=== PATIENT | male | born 1985 | race Two or more races ===

== ENCOUNTER 2019-05-28 11:50 | Emergency (ER) | payer BC ==
[~2019-05-28] VITALS: Ht 185.4 cm; Wt 95.3 kg
[2019-05-28 12:05] VITALS: BP 148/73
--- NOTE | 2019-05-28 12:05 | NUR ---
ED Nurse Note: Patient walked in to ER due to sorethroat x3 days. As per pt, he took OTC medications last night and this morning but doesnt alleviate the pain. No SOB. Afebrile. VSS.
--- NOTE | 2019-05-28 12:51 | Emergency Room Report ---
History of Present Illness General Chief Complaint: Sore Throat Source: Patient Present Illness HPI 33-year-old male presents to the emergency department complaining of 8 out of 10 severity sore throat with intermittent nasal congestion, mucus production and cough. Pt. reports his cough is most noticeable at night where he describes choking sensation on mucus. He reports his symptoms have been going on for 2 days he reports intermittent environmental allergies but does not take any medication for this. Pt. reports his ST is exacerbated with swallowing and describes the sensation of "razor blades" in his throat. He denies fevers or chills he reports he has been taking Mucinex and he last took some Mucinex this morning but only took 1 of the pills. Patient denies a significant past medical history. He denies swollen tender lymph nodes. He denies contact with children. Patient History Past Medical History: none, see triage record Past Surgical History: none Reviewed Nursing Documentation: PMH: Agreed; PSxH: Agreed Nursing Documentation-PMH Past Medical History: No Stated History Review of Systems All Other Systems: negative except mentioned in HPI Physical Exam Vital Signs Date Time Temp Pulse Resp B/P (MAP) Pulse Ox O2 Delivery O2 Flow Rate FiO2 05/28/19 11:57 98.8 72 18 148/73 (98) 98 Room Air Sp02 EP Interpretation: reviewed, normal General Appearance: no apparent distress, alert, GCS 15, non-toxic Head: normocephalic, atraumatic Eyes: bilateral eye normal inspection, bilateral eye PERRL ENT: hearing grossly normal, normal voice, pharyngeal erythema, other - no tonsillar swelling or exudates Neck: full range of motion, no meningismus, other - NO cervical LAD, no Stridor , no phlegm on ascultation Respiratory: chest non-tender, lungs clear, normal breath sounds, speaking full sentences Cardiovascular #1: regular rate, rhythm Musculoskeletal: gait/station normal, normal range of motion, non-tender Neurologic: alert, oriented x3, responsive, motor strength/tone normal, sensory intact, speech normal, grossly normal Psychiatric: judgement/insight normal Skin: no rash, normal color Lymphatic: no adenopathy Medical Decision Making PA Attestation Dr. Schrader is my supervising Physician whom patient management has been discussed with. Diagnostic Impression: Primary Impression: Acute pharyngitis Qualified Codes: J02.9 - Acute pharyngitis, unspecified Additional Impression: Post-nasal drainage ER Course 33-year-old male presents to the emergency department complaining of 8 out of 10 severity sore throat with intermittent nasal congestion, mucus production and cough. Pt. reports his cough is most noticeable at night where he describes choking sensation on mucus. He reports his symptoms have been going on for 2 days he reports intermittent environmental allergies but does not take any medication for this. Pt. reports his ST is exacerbated with swallowing and describes the sensation of "razor blades" in his throat. He denies fevers or chills he reports he has been taking Mucinex and he last took some Mucinex this morning but only took 1 of the pills. Patient denies a significant past medical history. He denies swollen tender lymph nodes. He denies contact with children. Ddx considered but are not limited to: pharyngitis, strep, [employer]IAN, ludwigs angina, URI, PND, GERD just to name a few. Vital signs: are WNL, pt. is afebrile H&PE are most consistent with: pharyngitis not presumed to be strep based on CENTOR criteria. ORDERS: None required at this time as the diagnosis is clinical ED INTERVENTIONS: none required at this time. -I do not identify an emergent condition at this time. With current presentation , pt. is stable for close outpatient follow up and conservative treatment. D/ w pt. to return promptly to ED with worsening or new symptoms.- Pt. verbalizes' understanding and agreement with proposed treatment plan. DISCHARGE: At this time pt. is stable for d/c to home. Will provide printed patient care instructions, and any necessary prescriptions. Care plan and follow up instructions have been discussed with the patient prior to discharge. Last Vital Signs Date Time Temp Pulse Resp B/P (MAP) Pulse Ox O2 Delivery O2 Flow Rate FiO2 05/28/19 12:05 98.8 76 18 148/73 98 Room Air Disposition: HOME, SELF-CARE Condition: Stable Scripts Guaifenesin (Mucinex) 1,200 Mg Tab.er.12h 1200 MG PO Q12HR for 10 Days, #20 TAB Prov: Becca Pascal 05/28/19 Acetaminophen* (TYLENOL EXTRA STRENGTH*) 500 Mg Tablet 500 MG ORAL Q6H PRN for Mild Pain/Temp > 100.5, #20 TAB 0 Refills Prov: Becca Pascal 05/28/19 Lidocaine HCl 2% Viscous (Lidocaine HCl 2% Viscous) 100 Ml Solution 10 ML ORAL QID for throat pain, #120 ML Prov: Becca Pascal 05/28/19 Cetirizine Hcl/Pseudoephedrine (ZYRTEC-D TABLET) 1 Each Tab.er.12h 1 EACH ORAL Q12HR for 7 Days, #30 TAB Prov: Becca Pascal 05/28/19 Patient Instructions: Sore Throat Additional Instructions: -I do not identify an emergent condition at this time. With current presentation , this pt. is stable for close outpatient follow up and conservative treatment. The CENTOR Criteria was used in determining your risk of having a true Group B streptococcal throat infection. Please see the attached table which outlines this criteria for clinical decision making based on evidence based research. This is the standard of medical care. Take medications as directed. Follow up with a Primary Care Provider in 3-5 days, even if your symptoms have resolved. --Please review list of primary care clinics, if you do not already have a primary care provider Return sooner to ED if new symptoms occur, or current symptoms become worse. - Please note that this Emergency Department Report was dictated using [employer] plant operator technology software, occasionally this can lead to erroneous entry secondary to interpretation by the dictation equipment. Becca Pascal May 28, 2019 12:51
[2019-05-28] MEDS ORDERED: ZYRTEC-D TABLE1 EACH ORAL (12:52)
[2019-05-28] MEDS ORDERED: TYLENOL EXTRA500 MG ORAL (12:52)
[2019-05-28] MEDS ORDERED: LIDOCAINE VISC100 ML ORAL (12:52)
[2019-05-28] MEDS ORDERED: MUCINEX1200 MG PO (12:53)
[2019-05-28 13:02] VITALS: BP 148/73
--- NOTE | 2019-05-28 13:02 | NUR ---
ED Nurse Note: Pt cleared by ERMD for discharge. DC instructions/prescription was given and explained to pt and verbalized understanding of teachings. All medical deviecs such as ID band removed. Pt is AAO x4, ambulatory and left with all personal belongings.
== END 2019-05-28 13:02 | disposition home or self-care (01) ==
LOC: EMR 12:25
DX: J02.9 Acute pharyngitis, unspecified (principal); R09.82 Postnasal drip
CPT/HCPCS: 99282